=== PATIENT | male | born 1945 | race Caucasian/White ===

== ENCOUNTER 2019-01-18 20:47 | Inpatient (IN) | payer MEDICARE, OTHER ==
[~2019-01-18 20:47] MED LIST: VANCOMYCIN HCL 1.25 GM in SOD CHLORIDE 0.9% 250 ML IVPB
[2019-01-18] MEDS: NITROGLYCERIN 50 MG/D5W (PMX) 250 ML IV (21:04)
[2019-01-18] MEDS: FUROSEMIDE 20 MG INJ IV (21:07)
[2019-01-18] MEDS: CEFEPIME 2GM/50 ML (PMX) 50 ML IVPB (21:08)
[2019-01-18] MEDS ORDERED: ACETAMINOPHEN 325 MG SUPP PR (21:12)
[2019-01-18] MEDS: ACETAMINOPHEN 325 MG TAB PO (21:13)
[2019-01-18 21:14] LABS: ADD MAN DIFF? NO
[2019-01-18 21:16] LABS: WHITE BLOOD COUNT 21.3 10^3/ul (4.8-10.8)
[2019-01-18 21:16] LABS: ABNORMAL IP MESSAGE 1; BASOPHIL # 0.2 10^3/ul (0.0-0.1); EOSINOPHILS # 0.3 10^3/ul (0.0-0.5); EOSINOPHILS % 1.3 % (0.0-7.0); HEMATOCRIT 30.7 % (42.0-52.0); HEMOGLOBIN 9.4 g/dl (14.0-18.0); LYMPHOCYTES # 6.3 10^3/ul (0.8-2.9); LYMPHOCYTES % 29.5 % (15.0-51.0); MEAN CORPUSCULAR HEMOGLOBIN 30.3 pg (29.0-33.0); MEAN CORPUSCULAR HGB CONC 30.6 g/dl (32.0-37.0); MEAN PLATELET VOLUME 10.7 fl (7.4-10.4); MONOCYTE # 1.5 10^3/ul (0.3-0.9); NEUTROPHIL # 12.4 10^3/ul (1.6-7.5); NEUTROPHILS % 58.2 % (39.0-77.0); NUCLEATED RED BLOOD CELLS # 0.4 10^3/ul (0.0-0.0); NUCLEATED RED BLOOD CELLS% 1.7 /100WBC (0.0-0.0); PLATELET COUNT 539 10^3/UL (140-415); POSITIVE DIFF @See below; RED CELL DISTRIBUTION WIDTH 17.5 % (11.5-14.5)
[2019-01-18 21:35] LABS: INR 1.28; PROTIME 16.1 Sec (11.9-14.9); PT RATIO 1.3
[2019-01-18 21:37] LABS: ALANINE AMINOTRANSFERASE 22 IU/L (13-69); ALBUMIN 2.7 g/dl (3.3-4.9); ALBUMIN/GLOBULIN RATIO 0.77; ALKALINE PHOSPHATASE 65 IU/L (42-121); ANION GAP 8 (5-13); ASPARTATE AMINO TRANSFERASE 16 IU/L (15-46); BILIRUBIN,INDIRECT 0.5 mg/dl (0-1.1); BILIRUBIN,TOTAL 0.5 mg/dl (0.2-1.3); BLOOD UREA NITROGEN 17 mg/dl (7-20); CALCIUM 6.3 mg/dl (8.4-10.2); CARBON DIOXIDE 17 mmol/L (21-31); CHLORIDE 117 mmol/L (97-110); CREATININE 0.95 mg/dl (0.61-1.24); GLUCOSE 177 mg/dl (70-220); POTASSIUM 3.7 mmol/L (3.5-5.1); SODIUM 142 mmol/L (135-144); TOTAL PROTEIN 6.2 g/dl (6.1-8.1)
[2019-01-18 21:45] LABS: AADO2 Arterial 269.3 mmHg (7.0-24.0); Allen Test ACCEPTAB; Arterial Base Excess -6.2 mmol/L (-3.0-3); Arterial Blood Gas Oxygen Sat 99.6 mmHG (95.0-100.0); Arterial COHb 0.3 % (0.0-3.0); Arterial Fraction of Oxyhgb 98.9 % (93.0-99.0); Arterial HCO3 21.9 mmol/L (22.0-26.0); Arterial MetHb 0.4 % (0.0-1.5); Arterial pCO2 56.7 mmhg (35-45); Blood Gas IEPAP 15/5; MODE MASK - BIPAP; Site Right Radial
[2019-01-18 21:49] LABS: B-TYPE NATRIURETIC PEPTIDE 5640 PG/ML (0-125); TROPONIN-I < 0.012 ng/ml (0.000-0.120)
[2019-01-18] MEDS: VANCOMYCIN 1 GM (PMX) 250 ML IVPB (21:52)
[2019-01-18 22:26] LABS: ADD UMIC YES; UR ASCORBIC ACID NEGATIVE (NEGATIVE); UR BILIRUBIN (Dip) NEGATIVE (NEGATIVE); UR BLOOD (Dip) NEGATIVE (NEGATIVE); UR CLARITY SLIGHTLY CLOUDY (CLEAR); UR COLOR YELLOW (YELLOW); UR GLUCOSE (Dip) NEGATIVE (NEGATIVE); UR KETONES (Dip) NEGATIVE (NEGATIVE); UR LEUKOCYTE ESTERASE (Dip) NEGATIVE Leu/ul (NEGATIVE); UR MUCUS FEW /HPF (NONE SEEN); UR NITRITE (Dip) NEGATIVE (NEGATIVE); UR RBC 1 /HPF (0-5); UR SPECIFIC GRAVITY (Dip) 1.014 (1.003-1.030); UR SQUAMOUS EPITHELIAL CELL FEW /HPF (FEW); UR TOTAL PROTEIN (Dip) 1+ mg/dl (NEGATIVE); UR UROBILINOGEN (Dip) NEGATIVE (NEGATIVE); UR WBC 2 /HPF (0-5)
[2019-01-18 23:15] LABS: AADO2 Arterial 233.8 mmHg (7.0-24.0); Allen Test ACCEPTAB; Arterial Base Excess -2.1 mmol/L (-3.0-3); Arterial Blood Gas Oxygen Sat 99.2 mmHG (95.0-100.0); Arterial COHb 0.3 % (0.0-3.0); Arterial Fraction of Oxyhgb 98.6 % (93.0-99.0); Arterial HCO3 23.4 mmol/L (22.0-26.0); Arterial MetHb 0.3 % (0.0-1.5); Arterial pCO2 43.4 mmhg (35-45); Blood Gas IEPAP 16/6; MODE MASK - BIPAP; Site Right Radial
[2019-01-18 23:21] LABS: LACTIC ACID 1.3 mmol/L (0.5-2.0)
[2019-01-19] MEDS ORDERED: VANCOMYCIN IV PER PHARMACY XX
[2019-01-19] MEDS ORDERED: DOCUSATE SODIUM 100 MG CAP PO
[2019-01-19] MEDS ORDERED: ALBUTEROL 0.083% (NEB) 2.5 MG/3 ML AMP NEB
[2019-01-19] MEDS ORDERED: ONDANSETRON 4 MG INJ IV
[2019-01-19] MEDS ORDERED: BISACODYL (EC) 5 MG TAB PO
[2019-01-19] MEDS ORDERED: morphine 2 MG INJ IV
[2019-01-19] MEDS ORDERED: NITROGLYCERIN (SL) 0.4 MG TAB SL
[2019-01-19] MEDS ORDERED: NITROGLYCERIN 50 MG/D5W 250 ML BTL
[2019-01-19] MEDS ORDERED: IPRATROPIUM (NEB) 0.5 MG/2.5 ML AMP NEB
[2019-01-19] MEDS: INSULIN ASPART [NOVOLOG] 3 ML PEN SC ×6 (01:00→21:01)
[2019-01-19] MEDS: PIPER-TAZO 3.375 GM IV (PMX) 100 ML IVPB ×2 (01:25→05:47)
[2019-01-19] MEDS: FAMOTIDINE 20 MG INJ IV ×3 (01:26→20:40)
[2019-01-19] MEDS: HEPARIN 5,000 UNIT/1 ML VIAL SC ×3 (01:26→13:28)
[2019-01-19] MEDS ORDERED: ACCU-CHEK XX (02:00)
[2019-01-19 03:00] LABS: LACTIC ACID 1.6 mmol/L (0.5-2.0)
[2019-01-19 03:00] LABS: CREATINE KINASE 47 IU/L (23-200)
[2019-01-19 03:12] LABS: CK INDEX 0.6; CK-MB 0.26 ng/ml (0.0-2.4); TROPONIN-I < 0.012 ng/ml (0.000-0.120)
[2019-01-19] MEDS: ALBUMIN HUMAN 25% 100 ML IV ×2 (04:48→05:44)
[2019-01-19] MEDS: FUROSEMIDE 40 MG INJ IV (05:46)
[2019-01-19 08:45] LABS: AADO2 Arterial 108.9 mmHg (7.0-24.0); Allen Test ACCEPTAB; Arterial Base Excess -1.6 mmol/L (-3.0-3); Arterial Blood Gas Oxygen Sat 94.6 mmHG (95.0-100.0); Arterial COHb 0.3 % (0.0-3.0); Arterial HCO3 23.2 mmol/L (22.0-26.0); Arterial MetHb 0.3 % (0.0-1.5); Arterial pCO2 39.4 mmhg (35-45); MODE NASAL CANNULA; Site Right Radial
[2019-01-19] MEDS: VANCOMYCIN HCL 1.25 GM in SOD CHLORIDE 0.9% 250 ML IVPB (09:20)
[2019-01-19] MEDS: FUROSEMIDE 20 MG INJ IV (09:28)
[2019-01-19 10:59] LABS: CREATINE KINASE 31 IU/L (23-200)
[2019-01-19 11:11] LABS: TROPONIN-I < 0.012 ng/ml (0.000-0.120)
[2019-01-19] MEDS: DOXYCYCLINE 100 MG TAB PO ×2 (12:00→20:40)
[2019-01-19] MEDS ORDERED: FUROSEMIDE (10 MG/ML) IV SYG IV (13:30)
[2019-01-19 13:59] LABS: HEMOGLOBIN A1C 6.8 % (0-5.9)
[2019-01-19] MEDS ORDERED: POTASSIUM CHLORIDE 20 MEQ POWDER FOR ORAL SOLN PO ×2 (14:00)
[2019-01-19 15:13] LABS: INR 1.16; PROTIME 14.9 Sec (11.9-14.9); PT RATIO 1.2
[2019-01-19] MEDS: HEPARIN 1000 UNITS/ML 10 ML INJ IV (15:43)
[2019-01-19] MEDS: D5W IV (15:44)
[2019-01-19] MEDS: LASIX IV (15:44)
[2019-01-19] MEDS: HEPARIN 25000 UNITS/250 ML 250 ML IV (15:46)
[2019-01-19 22:59] LABS: PARTIAL THROMBOPLASTIN TIME 83.2 Sec (23.0-35.0)
[2019-01-20] MEDS: D5W IV (03:06)
[2019-01-20] MEDS: LASIX IV (03:06)
[2019-01-20 03:15] LABS: POTASSIUM 3.5 mmol/L (3.5-5.1)
[2019-01-20] MEDS: POTASSIUM CHLORIDE 20 MEQ POWDER FOR ORAL SOLN PO (05:02)
[2019-01-20 05:13] LABS: ADD MAN DIFF? NO
[2019-01-20 05:28] LABS: ABNORMAL IP MESSAGE 1; EOSINOPHILS # 0.1 10^3/ul (0.0-0.5); EOSINOPHILS % 1.8 % (0.0-7.0); HEMATOCRIT 33.2 % (42.0-52.0); HEMOGLOBIN 10.8 g/dl (14.0-18.0); LYMPHOCYTES # 0.5 10^3/ul (0.8-2.9); LYMPHOCYTES % 12.7 % (15.0-51.0); MEAN CORPUSCULAR HEMOGLOBIN 30.9 pg (29.0-33.0); MEAN CORPUSCULAR HGB CONC 32.5 g/dl (32.0-37.0); MEAN CORPUSCULAR VOLUME 95.1 fl (82.0-101.0); MEAN PLATELET VOLUME 11.8 fl (7.4-10.4); MONOCYTE # 0.5 10^3/ul (0.3-0.9); MONOCYTES % 13.2 % (0.0-11.0); NEUTROPHIL # 2.8 10^3/ul (1.6-7.5); NEUTROPHILS % 71.3 % (39.0-77.0); PLATELET COUNT 123 10^3/UL (140-415); POSITIVE DIFF @See below; RED BLOOD COUNT 3.49 10^6/ul (4.70-6.10); RED CELL DISTRIBUTION WIDTH 17.5 % (11.5-14.5)
[2019-01-20 05:49] LABS: LACTIC ACID 1.1 mmol/L (0.5-2.0)
[2019-01-20 05:50] LABS: MAGNESIUM 2.6 mg/dl (1.7-2.5)
[2019-01-20 06:02] LABS: ANION GAP 10 (5-13); BLOOD UREA NITROGEN 63 mg/dl (7-20); CARBON DIOXIDE 17 mmol/L (21-31); CHLORIDE 106 mmol/L (97-110); CREATININE 2.95 mg/dl (0.61-1.24); GLUCOSE 166 mg/dl (70-220); POTASSIUM 5.3 mmol/L (3.5-5.1); SODIUM 133 mmol/L (135-144)
[2019-01-20 06:21] LABS: PARTIAL THROMBOPLASTIN TIME 66.4 Sec (23.0-35.0)
[2019-01-20 06:34] LABS: POTASSIUM 3.8 mmol/L (3.5-5.1)
[2019-01-20] MEDS: POTASSIUM CHLORIDE 50 ML IVPB (06:54)
[2019-01-20] MEDS: INSULIN ASPART [NOVOLOG] 3 ML PEN SC ×5 (08:19→21:12)
[2019-01-20] MEDS: FAMOTIDINE 20 MG INJ IV (08:52)
[2019-01-20] MEDS: DOXYCYCLINE 100 MG TAB PO ×2 (08:57→20:16)
[2019-01-20 15:27] LABS: 50/50 PTT IMMED 44.8 Sec
[2019-01-20 15:46] LABS: POTASSIUM 3.9 mmol/L (3.5-5.1)
[2019-01-20 15:52] LABS: PARTIAL THROMBOPLASTIN TIME 35.2 Sec (23.0-35.0)
[2019-01-20] MEDS: HEPARIN 1000 UNITS/ML 10 ML INJ IV (16:43)
[2019-01-20] MEDS: HEPARIN 25000 UNITS/250 ML 250 ML IV (16:46)
[2019-01-20 20:35] LABS: POTASSIUM 3.5 mmol/L (3.5-5.1)
[2019-01-20 23:11] LABS: PARTIAL THROMBOPLASTIN TIME 60.4 Sec (23.0-35.0)
[2019-01-21] MEDS: INSULIN ASPART [NOVOLOG] 3 ML PEN SC ×4 (08:15→20:33)
[2019-01-21] MEDS: FAMOTIDINE 20 MG TAB PO (08:37)
[2019-01-21] MEDS: DOXYCYCLINE 100 MG TAB PO (08:37)
[2019-01-21 11:17] LABS: ANION GAP 10 (5-13); BLOOD UREA NITROGEN 26 mg/dl (7-20); CARBON DIOXIDE 31 mmol/L (21-31); CHLORIDE 97 mmol/L (97-110); CREATININE 1.39 mg/dl (0.61-1.24); GLUCOSE 190 mg/dl (70-220); POTASSIUM 3.5 mmol/L (3.5-5.1); SODIUM 138 mmol/L (135-144)
[2019-01-21] MEDS: HEPARIN 25000 UNITS/250 ML 250 ML IV ×2 (11:38→18:34)
[2019-01-21] MEDS: BISACODYL (EC) 5 MG TAB PO (13:38)
[2019-01-21] MEDS: WARFARIN 7.5 MG TAB PO (16:37)
[2019-01-21 18:14] LABS: PARTIAL THROMBOPLASTIN TIME 50.4 Sec (23.0-35.0)
[2019-01-21] MEDS: ATORVASTATIN 20 MG TAB PO (20:25)
[2019-01-22 01:27] LABS: PARTIAL THROMBOPLASTIN TIME 74.8 Sec (23.0-35.0)
[2019-01-22 08:33] LABS: ADD MAN DIFF? NO
[2019-01-22 08:36] LABS: WHITE BLOOD COUNT 7.3 10^3/ul (4.8-10.8)
[2019-01-22 08:36] LABS: BASOPHIL # 0.1 10^3/ul (0.0-0.1); EOSINOPHILS # 0.1 10^3/ul (0.0-0.5); EOSINOPHILS % 1.1 % (0.0-7.0); HEMATOCRIT 26.6 % (42.0-52.0); HEMOGLOBIN 8.3 g/dl (14.0-18.0); LYMPHOCYTES # 1.5 10^3/ul (0.8-2.9); LYMPHOCYTES % 19.8 % (15.0-51.0); MEAN CORPUSCULAR HEMOGLOBIN 29.3 pg (29.0-33.0); MEAN CORPUSCULAR HGB CONC 31.2 g/dl (32.0-37.0); MEAN PLATELET VOLUME 10.3 fl (7.4-10.4); MONOCYTE # 0.7 10^3/ul (0.3-0.9); MONOCYTES % 9.7 % (0.0-11.0); NEUTROPHIL # 4.9 10^3/ul (1.6-7.5); NEUTROPHILS % 66.5 % (39.0-77.0); NUCLEATED RED BLOOD CELLS% 0.4 /100WBC (0.0-0.0); PLATELET COUNT 277 10^3/UL (140-415); RED BLOOD COUNT 2.83 10^6/ul (4.70-6.10); RED CELL DISTRIBUTION WIDTH 16.6 % (11.5-14.5)
[2019-01-22] MEDS: FAMOTIDINE 20 MG TAB PO (08:42)
[2019-01-22] MEDS: HEPARIN 25000 UNITS/250 ML 250 ML IV (08:47)
[2019-01-22] MEDS: INSULIN ASPART [NOVOLOG] 3 ML PEN SC ×4 (08:48→21:00)
[2019-01-22 09:05] LABS: ANION GAP 15 (5-13); BLOOD UREA NITROGEN 19 mg/dl (7-20); CALCIUM 8.7 mg/dl (8.4-10.2); CARBON DIOXIDE 29 mmol/L (21-31); CHLORIDE 98 mmol/L (97-110); CREATININE 1.23 mg/dl (0.61-1.24); GLUCOSE 155 mg/dl (70-220); INR 1.26; POTASSIUM 3.3 mmol/L (3.5-5.1); PROTIME 15.9 Sec (11.9-14.9); PT RATIO 1.2; SODIUM 142 mmol/L (135-144)
[2019-01-22 09:07] LABS: MAGNESIUM 1.5 mg/dl (1.7-2.5)
[2019-01-22 09:35] LABS: PARTIAL THROMBOPLASTIN TIME 65.7 Sec (23.0-35.0)
[2019-01-22] MEDS: ENOXAPARIN 100 MG/ML SYG SC ×2 (11:14→20:59)
[2019-01-22] MEDS: LISINOPRIL 5 MG TAB PO (11:19)
[2019-01-22] MEDS: MAGNESIUM SULFATE IVPB (12:03)
[2019-01-22] MEDS: DEXTROSE 5% IVPB (12:03)
[2019-01-22] MEDS: POTASSIUM CHLORIDE (SR) 20 MEQ TAB PO (15:56)
[2019-01-22] MEDS: ACETAMINOPHEN 650MG/20.3ML CUP PO (15:56)
[2019-01-22] MEDS: WARFARIN 5 MG TAB PO (16:33)
[2019-01-22] MEDS: ACETAMINOPHEN 325 MG TAB PO (16:33)
[2019-01-22] MEDS: ATORVASTATIN 20 MG TAB PO (20:58)
[2019-01-23 05:30] LABS: ADD MAN DIFF? NO
[2019-01-23 05:35] LABS: BASOPHIL # 0.1 10^3/ul (0.0-0.1); BASOPHILS % 0.9 % (0.0-2.0); EOSINOPHILS # 0.1 10^3/ul (0.0-0.5); EOSINOPHILS % 1.2 % (0.0-7.0); HEMATOCRIT 25.6 % (42.0-52.0); HEMOGLOBIN 8.2 g/dl (14.0-18.0); LYMPHOCYTES # 1.2 10^3/ul (0.8-2.9); LYMPHOCYTES % 16.1 % (15.0-51.0); MEAN CORPUSCULAR HEMOGLOBIN 29.8 pg (29.0-33.0); MEAN CORPUSCULAR VOLUME 93.1 fl (82.0-101.0); MEAN PLATELET VOLUME 10.1 fl (7.4-10.4); MONOCYTE # 0.6 10^3/ul (0.3-0.9); MONOCYTES % 7.2 % (0.0-11.0); NEUTROPHIL # 5.5 10^3/ul (1.6-7.5); NEUTROPHILS % 72.2 % (39.0-77.0); NUCLEATED RED BLOOD CELLS% 0.5 /100WBC (0.0-0.0); PLATELET COUNT 263 10^3/UL (140-415); RED BLOOD COUNT 2.75 10^6/ul (4.70-6.10); RED CELL DISTRIBUTION WIDTH 16.6 % (11.5-14.5)
[2019-01-23 05:35] LABS: WHITE BLOOD COUNT 7.6 10^3/ul (4.8-10.8)
[2019-01-23 05:54] LABS: ANION GAP 10 (5-13); BLOOD UREA NITROGEN 21 mg/dl (7-20); CALCIUM 8.8 mg/dl (8.4-10.2); CARBON DIOXIDE 29 mmol/L (21-31); CHLORIDE 100 mmol/L (97-110); CREATININE 1.42 mg/dl (0.61-1.24); GLUCOSE 158 mg/dl (70-220); POTASSIUM 3.8 mmol/L (3.5-5.1); SODIUM 139 mmol/L (135-144)
[2019-01-23 05:58] LABS: PROTIME 20.1 Sec (11.9-14.9); PT RATIO 1.6
[2019-01-23 06:09] LABS: MAGNESIUM 2.9 mg/dl (1.7-2.5)
[2019-01-23] MEDS: INSULIN ASPART [NOVOLOG] 3 ML PEN SC ×4 (08:04→21:00)
[2019-01-23] MEDS: ENOXAPARIN 100 MG/ML SYG SC ×2 (08:07→21:10)
[2019-01-23] MEDS: LISINOPRIL 5 MG TAB PO (08:08)
[2019-01-23] MEDS: FAMOTIDINE 20 MG TAB PO (08:08)
[2019-01-23] MEDS: WARFARIN 5 MG TAB PO (17:09)
[2019-01-23] MEDS: ATORVASTATIN 20 MG TAB PO (21:07)
[2019-01-24 05:59] LABS: ADD MAN DIFF? NO
[2019-01-24 06:06] LABS: BASOPHIL # 0.1 10^3/ul (0.0-0.1); BASOPHILS % 0.8 % (0.0-2.0); EOSINOPHILS # 0.1 10^3/ul (0.0-0.5); EOSINOPHILS % 1.2 % (0.0-7.0); HEMATOCRIT 26.7 % (42.0-52.0); HEMOGLOBIN 8.4 g/dl (14.0-18.0); LYMPHOCYTES # 1.8 10^3/ul (0.8-2.9); LYMPHOCYTES % 20.4 % (15.0-51.0); MEAN CORPUSCULAR HEMOGLOBIN 29.8 pg (29.0-33.0); MEAN CORPUSCULAR HGB CONC 31.5 g/dl (32.0-37.0); MEAN CORPUSCULAR VOLUME 94.7 fl (82.0-101.0); MEAN PLATELET VOLUME 10.3 fl (7.4-10.4); MONOCYTE # 0.7 10^3/ul (0.3-0.9); MONOCYTES % 8.4 % (0.0-11.0); NEUTROPHIL # 5.8 10^3/ul (1.6-7.5); NEUTROPHILS % 66.8 % (39.0-77.0); NUCLEATED RED BLOOD CELLS # 0.1 10^3/ul (0.0-0.0); NUCLEATED RED BLOOD CELLS% 0.6 /100WBC (0.0-0.0); PLATELET COUNT 271 10^3/UL (140-415); RED BLOOD COUNT 2.82 10^6/ul (4.70-6.10); RED CELL DISTRIBUTION WIDTH 16.8 % (11.5-14.5)
[2019-01-24 06:06] LABS: WHITE BLOOD COUNT 8.7 10^3/ul (4.8-10.8)
[2019-01-24 06:26] LABS: INR 1.93; PROTIME 22.1 Sec (11.9-14.9); PT RATIO 1.7
[2019-01-24 06:29] LABS: ANION GAP 8 (5-13); BLOOD UREA NITROGEN 19 mg/dl (7-20); CALCIUM 9.1 mg/dl (8.4-10.2); CARBON DIOXIDE 29 mmol/L (21-31); CHLORIDE 103 mmol/L (97-110); CREATININE 1.27 mg/dl (0.61-1.24); GLUCOSE 133 mg/dl (70-220); SODIUM 140 mmol/L (135-144)
[2019-01-24 06:51] LABS: POTASSIUM 4.1 mmol/L (3.5-5.1)
[2019-01-24] MEDS: FAMOTIDINE 20 MG TAB PO (08:24)
[2019-01-24] MEDS: INSULIN ASPART [NOVOLOG] 3 ML PEN SC ×2 (08:24→12:19)
[2019-01-24] MEDS: LISINOPRIL 5 MG TAB PO (08:25)
[2019-01-24] MEDS: ENOXAPARIN 100 MG/ML SYG SC ×2 (08:29→09:00)
== END 2019-01-24 14:55 | disposition home health service (06) | DRG 871 ==
LOC: ICU 01-19 00:55 → PP2 01-22 17:05 → E/R 20:47 → TEL 01-20 11:32
PROC: 5A09357 Assistance with Respiratory Ventilation, Less than 24 Consecutive Hours, Continuous Positive Airway Pressure (ICD-10-PCS; principal; 2019-01-18)
DX: A41.9 Sepsis, unspecified organism (principal); J96.01 Acute respiratory failure with hypoxia; J96.02 Acute respiratory failure with hypercapnia; J18.9 Pneumonia, unspecified organism; I50.23 Acute on chronic systolic (congestive) heart failure; E87.2 Acidosis; I13.0 Hypertensive heart and chronic kidney disease with heart failure and stage 1 through stage 4 chronic kidney disease, or unspecified chronic kidney disease; N17.9 Acute kidney failure, unspecified; I82.890 Acute embolism and thrombosis of other specified veins; E66.2 Morbid (severe) obesity with alveolar hypoventilation; E11.22 Type 2 diabetes mellitus with diabetic chronic kidney disease; D69.6 Thrombocytopenia, unspecified; J44.9 Chronic obstructive pulmonary disease, unspecified; I25.5 Ischemic cardiomyopathy; E83.42 Hypomagnesemia; D64.9 Anemia, unspecified; I25.10 Atherosclerotic heart disease of native coronary artery without angina pectoris; N18.9 Chronic kidney disease, unspecified; E78.5 Hyperlipidemia, unspecified; K59.00 Constipation, unspecified; E87.6 Hypokalemia; R65.20 Severe sepsis without septic shock; Z68.28 Body mass index [BMI] 28.0-28.9, adult; Z79.4 Long term (current) use of insulin; Z79.01 Long term (current) use of anticoagulants; Z95.0 Presence of cardiac pacemaker; Z95.1 Presence of aortocoronary bypass graft; Z87.891 Personal history of nicotine dependence; Z86.73 Personal history of transient ischemic attack (TIA), and cerebral infarction without residual deficits
CPT/HCPCS: 36415; 36600; 71045; 71250; 80048; 80053; 81001; 82550; 82553; 82803; 82962; 83036; 83605; 83735; 83880; 84132; 84484; 85025; 85335; 85610; 85730; 87040-91; 87081; 87086; 93005; 93306; 94660; 96365; 96367; 96375; 97116; 97162; 97530; 99285-25